=== PATIENT | female | born 1970 | race Caucasian/White ===

== ENCOUNTER 2019-01-11 05:59 | Day surgery (SDC) | payer MEDICAID ==
[2019-01-07 13:58] LABS: BASOPHIL % 0.4 % (0-2); PLATELET COUNT 277 x10^3mcL (130-400); RED CELL DISTRIBUTION WIDTH 15.7 % (11.5-14.5)
[2019-01-07 15:29] LABS: ALBUMIN 3.9 g/dL (3.4-5.0); ALKALINE PHOSPHATASE 123 U/L (46-116); ALT/SGPT 139 U/L (14-59); AST/SGOT 139 U/L (15-37); BILIRUBIN TOTAL 0.49 mg/dL (0.20-1.00); CALCIUM 9.7 mg/dL (8.5-10.1); CARBON DIOXIDE 26.9 mmol/L (21-32); CHLORIDE SERUM 106 mmol/L (98-107); CREATININE SERUM 0.6 mg/dL (0.6-1.0); GFR1 > 60 mL/min; GLUCOSE SERUM 86 mg/dL (74-106); POTASSIUM SERUM 3.9 mmol/L (3.5-5.1); SODIUM SERUM 143 mmol/L (136-145); TOTAL PROTEIN, SERUM 8.2 g/dL (6.4-8.2)
[~2019-01-11] VITALS: Ht 157.5 cm; Wt 73.0 kg
[2019-01-11 07:02] VITALS: BP 124/81
[2019-01-11 19:02] VITALS: BP 113/70
== END 2019-01-11 18:50 | disposition home or self-care (01) ==
LOC: DS 05:59 → MA 09:00 → DS 09:00
PROVIDERS: Surgery
PROC: 0HBU0ZX Excision of Left Breast, Open Approach, Diagnostic (ICD-10-PCS; principal; 2019-01-11 13:30)
DX: C50.212 Malignant neoplasm of upper-inner quadrant of left female breast (principal)
CPT/HCPCS: 88344; 88361; J0690; J1170; J2001; J2175; J2405; J2704; J3010; J3490; J7120; Q9968